=== PATIENT | female | born 2000 | race Asian ===

== ENCOUNTER 2025-03-16 17:46 | Outpatient (CLI) | payer BC ==
[2025-03-16 17:59] LABS: MEAN PLATELET VOLUME 8.2 FL (7.4-10.4); RED CELL DISTRIBUTION WIDTH 14.8 % (11.5-14.5)
[2025-03-16 18:33] LABS: CHOL/HDL RATIO 2.0 (0.00-4.99); CREATININE 0.75 MG/DL (0.40-0.90); LDL CHOLESTEROL 50 MG/DL (50-100); TOTAL CARBON DIOXIDE 27.4 MMOL/L (24-32); eGFR > 90 ML/MIN
== END 2025-03-16 23:59 | disposition home or self-care (01) ==
LOC: LAB 17:46
PROVIDERS: ATTEND Internal Medicine
DX: F32.A Depression, unspecified (principal); Z76.89 Persons encountering health services in other specified circumstances
CPT/HCPCS: 36415; 80053; 80061; 84443; 85025